=== PATIENT | female | born 1965 | race Caucasian/White ===

== ENCOUNTER 2021-10-02 08:48 | Emergency (ER) | payer OTHER ==
[2021-10-02 09:20] VITALS: TEMP 98; BMI 34.7
[2021-10-02] MEDS ORDERED: SOTROVIMAB 500 MG in SODIUM CHLORIDE 100 ML IVPB ONE (09:38)
[2021-10-02 12:19] VITALS: BP 125/70; PULSE 99
== END 2021-10-02 14:14 | disposition home or self-care (01) ==
LOC: JCOVINFU 08:48 → JER 08:48 → JCOVINFU 14:14
PROC: 3E033GC Introduction of Other Therapeutic Substance into Peripheral Vein, Percutaneous Approach (ICD-10-PCS; principal; 2021-10-02)
DX: U07.1 COVID-19 (principal)
CPT/HCPCS: 99284-25; M0247; Q0247

== ENCOUNTER 2022-03-28 07:14 | Emergency (ER) | payer OTHER ==
[2022-03-28] MEDS ORDERED: SODIUM CHLORIDE 0.9% 1000 ML INFUS.BAG IV ONE (07:21)
[2022-03-28] MEDS ORDERED: ACETAMINOPHEN 1000 MG/100 ML BAG IVPB ONE (07:21)
[2022-03-28] MEDS ORDERED: ONDANSETRON 4 MG/2 ML VIAL IVPUSH ONE (07:21)
[2022-03-28 07:24] VITALS: BP 147/79; PULSE 79; TEMP 98.9; BMI 32.6
[2022-03-28] MEDS ORDERED: ONDANSETRON 4 MG/2 ML VIAL ONE (07:36)
[2022-03-28] MEDS ORDERED: ACETAMINOPHEN INJECTION 100 ML IVPB ONE (07:36)
[2022-03-28] MEDS ORDERED: FAMOTIDINE 20 MG/50 ML IVPB 20 MG/50 ML MG IVPB ONE ×2 (07:40→07:54)
[2022-03-28 08:10] LABS: HEMATOCRIT 44.1 % (32.4-45.2); HEMOGLOBIN 15.2 G/dL (10.7-15.3); MCH 30.8 pg (25.7-33.7); MCHC 34.6 g/dl (32.0-36.0); MEAN CELL VOLUME 89.1 fl (80-96); MEAN PLT VOLUME 8.5 fl (7.5-11.1); PLATELET COUNT 215.6 10^3/uL (134-434); RBC 4.95 10^6/uL (3.60-5.2); RDW 13.9 % (11.6-15.6); WHITE BLOOD COUNT 9.7 10^3/uL (4.0-10.8)
[2022-03-28 08:18] LABS: ALBUMIN 4.1 g/dl (3.4-5.0); BILIRUBIN,TOTAL 0.6 mg/dl (0.2-1); CALCIUM 10.3 mg/dl (8.5-10); CREATININE 0.7 mg/dl (0.55-1.3); TOT PROT 7.3 g/dl (6.4-8.2)
== END 2022-03-28 11:31 | disposition home or self-care (01) ==
LOC: FER 07:14
PROC: 3E0333Z Introduction of Anti-inflammatory into Peripheral Vein, Percutaneous Approach (ICD-10-PCS; principal; 2022-03-28)
PROC: 3E033GC Introduction of Other Therapeutic Substance into Peripheral Vein, Percutaneous Approach (ICD-10-PCS; 2022-03-28)
PROC: 3E033GC Introduction of Other Therapeutic Substance into Peripheral Vein, Percutaneous Approach (ICD-10-PCS; 2022-03-28)
DX: K30 Functional dyspepsia (principal)
CPT/HCPCS: 0241U-QW; 36415; 80053; 83690; 84484; 85027; 93005; 99284-25

== ENCOUNTER 2022-05-19 13:56 | Emergency (ER) | payer OTHER ==
[2022-05-19] MEDS ORDERED: SODIUM CHLORIDE 0.9% 1000 ML INFUS.BAG IV ONE (14:14)
[2022-05-19] MEDS ORDERED: ASPIRIN 81 MG CHEWABLE TABLETS PO ONE (14:22)
[2022-05-19] MEDS ORDERED: ASPIRIN 81 MG CHEWABLE TABLETS ONE (15:11)
[2022-05-19 15:12] LABS: ALBUMIN 4.2 g/dl (3.4-5.0); BILIRUBIN,TOTAL 0.7 mg/dl (0.2-1); CALCIUM 10.1 mg/dl (8.5-10); CREATININE 0.6 mg/dl (0.55-1.3); TOT PROT 7.5 g/dl (6.4-8.2)
[2022-05-19 15:14] LABS: HEMATOCRIT 43.6 % (32.4-45.2); HEMOGLOBIN 15.3 G/dL (10.7-15.3); MCH 31.6 pg (25.7-33.7); MEAN CELL VOLUME 90.2 fl (80-96); MEAN PLT VOLUME 8.6 fl (7.5-11.1); PLATELET COUNT 218.7 10^3/uL (134-434); RBC 4.83 10^6/uL (3.60-5.2); RDW 13.7 % (11.6-15.6); WHITE BLOOD COUNT 9.2 10^3/uL (4.0-10.8)
[2022-05-19 15:28] LABS: PLATELET ESTIMATE ADEQUATE
[2022-05-19 17:15] LABS: EPITHELIAL CELLS FEW /hpf
[2022-05-19 19:50] VITALS: BMI 35.4
[2022-05-19] MEDS: INSULIN SLIDING SCALE (NOVOLOG) 1 VIAL SQ SCH (22:31)
[2022-05-20 02:37] VITALS: RESP 18
[2022-05-20] MEDS ORDERED: LEVOTHYROXINE NA 100 MCG TABLET (FP) PO SCH (07:00)
[2022-05-20] MEDS: INSULIN SLIDING SCALE (NOVOLOG) 1 VIAL SQ SCH ×2 (07:01→10:51)
[2022-05-20 09:09] VITALS: BP 114/64; PULSE 63; TEMP 98.1
[2022-05-20] MEDS ORDERED: ASPIRIN COATED 81 MG TABLET.EC PO SCH (10:00)
[2022-05-20] MEDS ORDERED: amLODIPine BESYLATE 10 MG TABLET (FP) PO SCH ×2 (10:00)
[2022-05-20] MEDS ORDERED: metoPROLOL SUCCINATE 25 MG TAB.SR.24H (FP) PO SCH (10:00)
== END 2022-05-20 13:11 | disposition home or self-care (01) ==
LOC: FER 13:56 → FM/S 16:48
PROVIDERS: ADMIT Internal Medicine
DX: R07.9 Chest pain, unspecified (principal)
CPT/HCPCS: 36415; 71046-TC-FY; 80053; 80061; 81003; 81015; 82962; 84443; 84484; 85027; 87086; 93005; 99285-25; C9803-CS; G0378; U0003; U0005

== ENCOUNTER 2023-09-26 13:43 | Emergency (ER) | payer OTHER ==
[2023-09-26] MEDS ORDERED: ACETAMINOPHEN 1000 MG/100 ML BAG IVPB ONE (14:10)
[2023-09-26] MEDS ORDERED: SODIUM CHLORIDE 0.9% 500 ML INFUS.BAG IV ONE (14:10)
[2023-09-26 14:30] LABS: HEMATOCRIT 46.8 % (32.4-45.2); HEMOGLOBIN 15.8 G/dL (10.7-15.3); MCH 30.7 pg (25.7-33.7); MCHC 33.8 g/dl (32.0-36.0); MEAN CELL VOLUME 90.7 fl (80-96); MEAN PLT VOLUME 8.6 fl (7.5-11.1); PLATELET COUNT 215.1 10^3/uL (134-434); RBC 5.16 10^6/uL (3.60-5.2); RDW 13.9 % (11.6-15.6); WHITE BLOOD COUNT 8.7 10^3/uL (4.0-10.8)
[2023-09-26 14:51] LABS: ALBUMIN 4.7 g/dl (3.4-5.0); BILIRUBIN,TOTAL 0.5 mg/dl (0.2-1); CALCIUM 9.8 mg/dl (8.5-10.1); CREATININE 0.7 mg/dl (0.6-1.3); TOT PROT 7.4 g/dl (6.4-8.2)
[2023-09-26 14:53] VITALS: BP 139/74; PULSE 69; RESP 18; TEMP 98.9; BMI 30.4
[2023-09-26 15:48] LABS: PLATELET ESTIMATE ADEQUATE
== END 2023-09-26 16:15 | disposition home or self-care (01) ==
LOC: FER 13:43
DX: R79.89 Other specified abnormal findings of blood chemistry (principal)
CPT/HCPCS: 36415; 71275-TC; 80053; 84484; 85027; 93005; 99285-25; Q9967